=== PATIENT | male | born 1985 | race Caucasian/White ===

== ENCOUNTER 2023-11-22 05:45 | Day surgery (SDC) | payer OTHER ==
[~2023-11-22] VITALS: Ht 177.8 cm; Wt 78.0 kg
[2023-11-22 06:50] VITALS: O2SAT 100
[2023-11-22] MEDS ORDERED: MEPERIDINE 100 MG INJ. 100 MG/ML VIAL ONE (07:42)
[2023-11-22] MEDS ORDERED: MIDAZOLAM HCL 5 MG/5 ML VIAL ONE (07:42)
[2023-11-22] MEDS ORDERED: SIMETHICONE 40 MG/0.6 ML ML ONE (08:31)
[2023-11-22 09:42] VITALS: BP_SYST 121; PULSE 79; RESP 18
== END 2023-11-22 09:36 | disposition home or self-care (01) ==
LOC: SMU 05:45 → SDS 05:45
PROVIDERS: ATTEND Internal Medicine Gastroenterology
DX: K21.9 Gastro-esophageal reflux disease without esophagitis (principal); K31.89 Other diseases of stomach and duodenum; R12 Heartburn; K44.9 Diaphragmatic hernia without obstruction or gangrene; F17.210 Nicotine dependence, cigarettes, uncomplicated; Z79.899 Other long term (current) drug therapy
CPT/HCPCS: 43239; 99152; 87081; 36415; 88305; 88312; 88313; G0378; J2250; J2175